=== PATIENT | male | born 1945 | race Two or more races ===

== ENCOUNTER 2018-01-12 18:22 | Inpatient (IN) | payer MEDICARE, BC ==
[~2018-01-12] VITALS: Ht 182.9 cm; Wt 80.3 kg
[2018-01-12] MEDS ORDERED: QUET25TA PO (18:27)
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
[2018-01-12 20:00] VITALS: BP 144/91
[2018-01-12] MEDS ORDERED: ZOLPIDEM TARTRATE 5 MG TABLET PO PRN (20:30)
[2018-01-12] MEDS ORDERED: MAG HYDROX/AL HYDROX/SIMETH 30 ML UDC PO PRN (20:30)
[2018-01-12] MEDS ORDERED: MAGNESIUM HYDROXIDE 30 ML UDC PO PRN (20:30)
[2018-01-12] MEDS ORDERED: ACETAMINOPHEN 325 MG TABLET PO PRN (20:30)
[2018-01-12 23:59] VITALS: BP 138/86
[2018-01-13] MEDS: LORAZEPAM 0.5 MG TABLET PO PRN (01:38)
[2018-01-13 06:27] LABS: BASOPHILS % (AUTO) 0.2 % (0.0-2.0); EOSINOPHILS % (AUTO) 0.6 % (0.0-6.0); HEMATOCRIT 43 % (39-51); HEMOGLOBIN 14.4 g/dL (13.5-17.5); LYMPHOCYTES # (AUTO) 0.9 /CMM (0.8-4.8); LYMPHOCYTES % (AUTO) 6.3 % (20.0-44.0); MEAN CORPUSCULAR HGB CONC 34 g/dl (31.0-36.0); MEAN CORPUSCULAR VOLUME 98 fL (80-96); MONOCYTES # (AUTO) 0.9 /CMM (0.1-1.30); MONOCYTES % (AUTO) 5.7 % (2.0-12.0); NEUTROPHILS % (AUTO) 87.2 % (43.0-81.0); PLATELET COUNT (AUTO) 252 /CMM (150-450); RDW COEFFICIENT OF VARIATION 13.1 (11.5-15.0); RED BLOOD CELL COUNT(AUTO) 4.38 MIL/uL (4.5-6.0)
[2018-01-13 07:15] LABS: CHOLESTEROL 124 mg/dL (<200); HDL CHOLESTEROL 52 mg/dL (40-60); LDL 64 mg/dL (0-99); TRIGLYCERIDES 65 mg/dL (30-150)
[2018-01-13 07:16] LABS: ALANINE AMINOTRANSFERASE 13 U/L (12-78); ALBUMIN 3.6 g/dL (3.4-5.0); ALKALINE PHOSPHATASE 76 U/L (46-116); ASPARTATE AMINOTRANSFERASE 22 U/L (15-37); BILIRUBIN,TOTAL 0.9 mg/dL (0.2-1.0); CALCIUM, SERUM 8.7 mg/dL (8.5-10.1); CARBON DIOXIDE 28 mmol/L (21-32); CHLORIDE 104 mmol/L (98-107); CREATININE 1.1 mg/dL (0.6-1.3); GLUCOSE 168 mg/dL (74-106); POTASSIUM 4.1 mmol/L (3.5-5.1); SODIUM SERUM 142 mmol/L (136-145); TOTAL PROTEIN, SERUM 7.4 g/dL (6.4-8.2); UREA NITROGEN, BLOOD 18 mg/dL (7-18)
[2018-01-13 08:24] VITALS: BP 134/84
[2018-01-13 16:00] VITALS: BP 136/83
[2018-01-13 19:50] VITALS: BP 149/95
[2018-01-13] MEDS: QUETIAPINE FUMARATE 25 MG TABLET PO SCH (21:26)
[2018-01-14 08:00] VITALS: BP 144/94
[2018-01-14 08:46] LABS: APPEARANCE,URINE CLEAR (CLEAR); BILIRUBIN,URINE NEGATIVE (NEGATIVE); BLOOD, URINE NEGATIVE Ery/uL (NEGATIVE); COLOR,URINE YELLOW (YELLOW); KETONES,URINE TRACE (NEGATIVE); LEUKOCYTE ESTERASE ,URINE NEGATIVE (NEGATIVE); NITRITE, URINE NEGATIVE (NEGATIVE); PH,URINE 6.5 (5.0-8.0); PROTEIN,URINE NEGATIVE (NEGATIVE); UGLUCOSE NEGATIVE (NEGATIVE)
[2018-01-14] MEDS: LORAZEPAM 0.5 MG TABLET PO PRN (08:57)
[2018-01-14 16:00] VITALS: BP 103/65
--- NOTE | 2018-01-14 19:30 | NUR ---
GPS RN NOTE, RECEIVED PATIENT AWAKE AND IN BED, PATIENT HAS NO COMPLAINTS OR S/S OF PAIN AT THIS TIME. PATIENT IS DISPLAYING NO S/S OF APPARENT DISTRESS AT THIS TIME. PATIENT BREATHING IS UNLABORED WITH EQUAL RISE AND FALL OF THE CHEST. PATIENT IS ALERT AND ORIENTED X 1 ON ROOM AIR WITH A SPO2 OF 95%. PATIENT IS COMPLIANT WITH MEDICATION, ANXIOUS AT TIMES, PARANOID, COOPERATIVE, CONFUSED, AND NEEDS REORIENTATION. PATIENT DENIES SUICIDE IDEATIONS AND HOMICIDAL IDEATIONS AT THIS TIME. PATIENT ASSISTED WITH TURNING AND REPOSITIONING Q2HR AND PRN FOR COMFORT AND CIRCULATION. PATIENT HAS NO NEEDS AT THIS TIME. PATIENT EDUCATED ON THE USE OF THE CALL JEFFRIES. PATIENT SIDE RAILS ARE UP X 2, BED IS LOCKED AND LOW, AND I WILL CONTINUE TO MONITOR THIS PATIENT Q 15 MIN WITH THE HELP OF STAFF.
[2018-01-14 19:52] VITALS: BP 113/70
[2018-01-14] MEDS: QUETIAPINE FUMARATE 25 MG TABLET PO SCH (22:21)
[2018-01-15 08:00] VITALS: BP 152/90
--- NOTE | 2018-01-15 15:33 | NUR ---
Initial Discharge Plan: Per pts , Pt will be discharged to [address] [address] . SW will help form a safe and proper discharge plan in collaboration with psychiatrist and patients .
--- NOTE | 2018-01-15 15:33 | NUR ---
COLEMAN contacted pts Keyla Suarez [phone] who confirmed that pt will be discharged to [place] [id number].
[2018-01-15 16:00] VITALS: BP 105/74
[2018-01-15 20:06] VITALS: BP 99/73
[2018-01-15] MEDS: QUETIAPINE FUMARATE 25 MG TABLET PO SCH (21:18)
[2018-01-15] MEDS: SULFAMETH/TRIMETH 800/160 MG 1 UDTAB TABLET PO SCH (21:20)
[2018-01-15 23:00] VITALS: BP 108/68
[2018-01-16 09:14] VITALS: BP 151/94
[2018-01-16] MEDS: SULFAMETH/TRIMETH 800/160 MG 1 UDTAB TABLET PO SCH (09:38)
[2018-01-16 16:00] VITALS: BP 131/79
[2018-01-16 20:08] VITALS: BP 143/82
[2018-01-16] MEDS: AMOX/CLAVULANATE 250 MG TABLET PO SCH (21:18)
[2018-01-16] MEDS: QUETIAPINE FUMARATE 25 MG TABLET PO SCH (21:55)
[2018-01-16 23:00] VITALS: BP 135/80
[2018-01-17] MEDS: AMOX/CLAVULANATE 250 MG TABLET PO SCH ×2 (08:08→21:30)
[2018-01-17 09:16] VITALS: BP 154/100
--- NOTE | 2018-01-17 15:23 | NUR ---
COLEMAN faxed referral to Radha Cartagena from [facility] [address] [facility] [id number] fax: [phone] for review and evaluation.
[2018-01-17 16:00] VITALS: BP 140/80
[2018-01-17 20:00] VITALS: BP 125/80
[2018-01-17] MEDS: QUETIAPINE FUMARATE 25 MG TABLET PO SCH (21:31)
[2018-01-18 08:00] VITALS: BP 127/87
[2018-01-18] MEDS: AMOX/CLAVULANATE 250 MG TABLET PO SCH ×2 (08:32→20:21)
[2018-01-18] MEDS: OXYBUTYNIN CHLORIDE 5 MG TABLET PO SCH (09:07)
[2018-01-18 16:03] VITALS: BP 105/75
[2018-01-18 20:00] VITALS: BP 103/68
[2018-01-18] MEDS: QUETIAPINE FUMARATE 25 MG TABLET PO SCH (21:24)
[2018-01-19] MEDS: AMOX/CLAVULANATE 250 MG TABLET PO SCH ×2 (08:03→20:10)
[2018-01-19] MEDS: OXYBUTYNIN CHLORIDE 5 MG TABLET PO SCH (08:04)
[2018-01-19 08:33] VITALS: BP 140/90
[2018-01-19 16:00] VITALS: BP 124/85
[2018-01-19 20:00] VITALS: BP 122/80
[2018-01-19] MEDS: QUETIAPINE FUMARATE 25 MG TABLET PO SCH (21:02)
[2018-01-20 08:00] VITALS: BP 150/93
[2018-01-20] MEDS: OXYBUTYNIN CHLORIDE 5 MG TABLET PO SCH (08:25)
[2018-01-20] MEDS: AMOX/CLAVULANATE 250 MG TABLET PO SCH ×2 (08:25→21:31)
[2018-01-20 16:00] VITALS: BP 128/73
[2018-01-20 20:51] VITALS: BP 124/75
[2018-01-20] MEDS: QUETIAPINE FUMARATE 25 MG TABLET PO SCH (21:31)
[2018-01-21 08:15] VITALS: BP 153/92
[2018-01-21] MEDS: AMOX/CLAVULANATE 250 MG TABLET PO SCH (08:35)
[2018-01-21] MEDS: OXYBUTYNIN CHLORIDE 5 MG TABLET PO SCH (08:36)
--- NOTE | 2018-01-21 13:54 | NUR ---
Discharge Note: Pt being discharged to [facility] (Assisted Living Facility) [address] [facility], [place], [place] [id number] at 3:00pm by facility staff. Pts Keyla [phone] was notified and aware of discharge. Pts mood and affect was calm and cooperative. Pt denied suicidal/homicidal ideations. Pt will be under the medical care of Wound Care Nurse: Dr Rachid Arora [address], [place], [place] [id number] [phone] and Psychiatrist: Dr. Kaveh Hancock [address] [facility] [address], [place] [address] [phone]. SW facilitated info to IDT team who are in agreement with discharge arrangement. The multidisciplinary exitcare form was done, printed, signed, and given to the patient.
--- NOTE | 2018-01-21 15:30 | NUR ---
TV TECHNICIAN [facility]. DISCHARGE INSTRUCTIONS WERE GIVEN IN DISCHARGE PACKET. PT. LEFT IN MEDICALLY STABLE CONDITION. BELONGINGS LIST WAS CHECKED, AND SIGNED. DISCHARGE PAPERS WERE SIGNED WITH ANOTHER NURSE DUE TO PT. IS CONFUSED, AND UNABLE TO SIGN. ID BAND WAS REMOVED. PT. LEFT WITH HIS BELONGINGS.
[2018-01-21 16:00] VITALS: BP 113/67
== END 2018-01-21 16:00 | DRG 885 ==
LOC: GPS 18:22
PROVIDERS: ADMIT Psychiatry & Neurology Psychiatry; ATTEND Internal Medicine
DX: F29 Unspecified psychosis not due to a substance or known physiological condition (principal); B95.2 Enterococcus as the cause of diseases classified elsewhere; F03.91 Unspecified dementia, unspecified severity, with behavioral disturbance; G20 Parkinson's disease; N39.0 Urinary tract infection, site not specified; G25.9 Extrapyramidal and movement disorder, unspecified; F03.90 Unspecified dementia, unspecified severity, without behavioral disturbance, psychotic disturbance, mood disturbance, and anxiety; F41.9 Anxiety disorder, unspecified; Z73.6 Limitation of activities due to disability; F32.9 Major depressive disorder, single episode, unspecified; N32.81 Overactive bladder; Z79.899 Other long term (current) drug therapy
CPT/HCPCS: 36415; 71045-TC; 80053-TC; 80061-TC; 81000-TC; 85025-TC; 87081-TC; 87086-TC; 87186-TC; 97116-TC; 97530-TC